=== PATIENT | male | born 1975 | race Caucasian/White ===

== ENCOUNTER 2016-10-25 16:28 | Emergency (ER) | payer MEDICARE ==
[~2016-10-25] VITALS: Ht 172.7 cm; Wt 92.6 kg
[2016-10-25 16:30] VITALS: BP 129/72
[2016-10-25] MEDS ORDERED: ARIP2TAB PO (16:40)
[2016-10-25] MEDS ORDERED: GABA300C10 PO (16:40)
[2016-10-25] MEDS ORDERED: TRAM200T2 PO (16:40)
[2016-10-25] MEDS ORDERED: QUET100T4 PO (16:40)
[2016-10-25] MEDS ORDERED: GENTIAN VIOLET SOLN 2% 60 ML TP ONE (17:00)
== END 2016-10-25 17:47 | disposition home or self-care (01) ==
LOC: ED 17:41
DX: L60.0 Ingrowing nail (principal); L03.032 Cellulitis of left toe; L03.031 Cellulitis of right toe
CPT/HCPCS: 99283